=== PATIENT | female | born 1970 | race American Indian/Alaskan Native ===

== ENCOUNTER 2016-04-19 01:08 | Emergency (ER) | payer OTHER ==
[2016-04-19 01:57] LABS: Basophils % (Auto) 0.7 % (0.0-1.8); Eosinophils % (Auto) 1.3 % (0.0-4.3); Hematocrit 35.8 % (30.3-42.9); Hemoglobin 11.3 gm/dl (10.1-14.3); Mean Corpuscular HGB Conc 32 % (30-34); Mean Corpuscular Volume 81 fl (79-97); Platelet Count 269 K/mm3 (140-440); Red Blood Count 4.41 M/mm3 (3.65-5.03); Red Cell Distribution Width 16.9 % (13.2-15.2); White Blood Count 7.3 K/mm3 (4.5-11.0)
[2016-04-19 02:04] LABS: BUN/Creatinine Ratio 12.85; Blood Urea Nitrogen 9 mg/dL (7-17); Carbon Dioxide 23 mmol/L (22-30); Chloride 99.2 mmol/L (98-107); Glucose 98 mg/dL (65-100); Potassium 3.6 mmol/L (3.6-5.0); Sodium 138 mmol/L (137-145)
[2016-04-19 02:11] LABS: Mean Corpuscular Hemoglobin 26 pg (28-32)
[2016-04-19 02:19] LABS: Anion Gap 19 mmol/L
[2016-04-19] MEDS ORDERED: ATIVAN PO ONE (03:13)
--- NOTE | 2016-04-19 03:19 | Emergency Department Report ---
ED General Adult HPI - General Chief complaint: Arrhythmia/Palpitations Stated complaint: VAG BURNING,PALPITATIONS Time Seen by Provider: 04/19/16 02:54 Source: patient Mode of arrival: Ambulatory Limitations: No Limitations - History of Present Illness Initial comments: Patient complains of some discomfort bilaterally in her legs. She describes it as feeling tingly and painful. She states the pain is not changed by position. She reports it is worse in the late evening hours and nighttime. Has been going on for about a week now. No specific trauma is reported no neck pain no back pain is reported. Patient has reported anxiety at times due to the discomfort and felt her heart racing. She denies any chest pain however. As any prior history of restless leg syndrome. She does report family stressors and her other baseline. No exacerbation. Onset/Timin -: Gradual, week(s) Location: lower extremity Radiation: non-radiation Quality: burning, aching Consistency: intermittent Improves with: none Worsens with: none Associated Symptoms: denies other symptoms - Related Data Previous Rx's Medication Instructions Recorded Last Taken Type Gabapentin [Neurontin] 300 mg PO Q8HR #90 capsule 04/19/16 Unknown Rx LORazepam [Ativan] 1 mg PO BID PRN #15 tablet 04/19/16 Unknown Rx Allergies Allergy/AdvReac Type Severity Reaction Status Date / Time codeine Allergy Vomiting Verified 04/19/16 01:17 Penicillins Allergy Vomiting Verified 04/19/16 01:17 ED Review of Systems ROS: Stated complaint: VAG BURNING,PALPITATIONS Other details as noted in HPI Constitutional: denies: chills, fever Eyes: denies: eye pain, eye discharge, vision change ENT: denies: ear pain, throat pain Respiratory: denies: cough, shortness of breath, wheezing Cardiovascular: palpitations. denies: chest pain Endocrine: no symptoms reported Gastrointestinal: denies: abdominal pain, nausea, diarrhea Genitourinary: denies: urgency, dysuria, discharge Musculoskeletal: other (leg pains). denies: back pain, joint swelling, arthralgia Skin: denies: rash, lesions Neurological: denies: headache, weakness, paresthesias Psychiatric: denies: anxiety, depression Hematological/Lymphatic: denies: easy bleeding, easy bruising ED Past Medical Hx - Past Medical History Previous Medical History?: No - Surgical History Past Surgical History?: Yes Hx Cholecystectomy: Yes - Medications Home Medications: Home Medications Medication Instructions Recorded Confirmed Last Taken Type Gabapentin [Neurontin] 300 mg PO Q8HR #90 capsule 04/19/16 Unknown Rx LORazepam [Ativan] 1 mg PO BID PRN #15 tablet 04/19/16 Unknown Rx ED Physical Exam - General Limitations: No Limitations General appearance: alert, in no apparent distress - Head Head exam: Present: atraumatic, normocephalic - Eye Eye exam: Present: normal appearance - ENT ENT exam: Present: mucous membranes moist - Neck Neck exam: Present: normal inspection - Respiratory Respiratory exam: Present: normal lung sounds bilaterally. Absent: respiratory distress - Cardiovascular Cardiovascular Exam: Present: regular rate, normal rhythm. Absent: systolic murmur, diastolic murmur, rubs, gallop - GI/Abdominal GI/Abdominal exam: Present: soft, normal bowel sounds - Extremities Exam Extremities exam: Present: normal inspection. Absent: pedal edema, joint swelling, calf tenderness - Back Exam Back exam: Present: normal inspection - Neurological Exam Neurological exam: Present: alert, oriented X3, normal gait, other (downward Babinski bilaterally normal proprioception. Normal sensation to light touch.) - Psychiatric Psychiatric exam: Present: normal affect, normal mood - Skin Skin exam: Present: warm, dry, intact, normal color. Absent: rash ED Course Vital Signs 04/19/16 04/19/16 01:13 03:16 Temperature 97.8 F 98.5 F Pulse Rate 90 72 Respiratory 20 18 Rate Blood Pressure 162/83 Blood Pressure 160/62 [Left] O2 Sat by Pulse 100 100 Oximetry - Reevaluation(s) Reevaluation #1: 04/19/16 06:38 Labs are noted as his ECG they are unremarkable. It is unclear to me what the specific pathology is. I do question restless leg is a possibility. Clearly it is subjective and not objective in nature. Trial on gabapentin. I did consider Lyrica as an option as well. On second thought this probably was a better option Nonetheless at this point is left with her prescription for gabapentin I did give her a little Ativan here as well. It did seem to have a good effect. Neurologically the patient is intact she is ambulating well. She appears comfortable and well in general also. He shouldn't is of - [place] descent. This causes me to have a low suspicion for multiple sclerosis. No weakness associated with this. I do not suspect an ascending paralysis. 04/19/16 06:40 ED Medical Decision Making - Lab Data Result diagrams: 04/19/16 01:31 04/19/16 01:31 - EKG Data -: EKG Interpreted by Me EKG shows normal: sinus rhythm, axis, intervals, QRS complexes, ST-T waves Rate: normal - EKG Data Interpretation: normal EKG Critical care attestation.: If time is entered above; I have spent that time in minutes in the direct care of this critically ill patient, excluding procedure time. ED Disposition Clinical Impression: Paresthesia of bilateral legs Disposition: DISCHARGED TO HOME OR SELFCARE Is pt being admited?: No Does the pt Need Aspirin: No Condition: Stable Instructions: Paresthesia (ED), Restless Legs Syndrome (ED) Additional Instructions: Start the gabapentin 300 mg 3 times a day. And every day increase by 1 tablet every other day. Day 3- 2 tablets in the morning than 1 tablet in the afternoon and evening. Day 5- 2 tablets in the morning and the afternoon and one tablet in the evening Day 7- 2 tablets 3x a day. Follow with your doctor in a week to see you are progressing. Prescriptions: Gabapentin [Neurontin] 300 mg PO Q8HR #90 capsule LORazepam [Ativan] 1 mg PO BID PRN #15 tablet PRN Reason: Agitation Referrals: DURGA BLACKWOOD MD [Primary Care Provider] - 3-5 Days Time of Disposition: 03:20
[2016-04-19 04:05] VITALS: BP 160/62
== END 2016-04-19 03:50 | disposition home or self-care (01) ==
LOC: ED 01:08
DX: R20.2 Paresthesia of skin (principal); M79.605 Pain in left leg; M79.604 Pain in right leg; Z90.49 Acquired absence of other specified parts of digestive tract; Z79.899 Other long term (current) drug therapy; Z88.0 Allergy status to penicillin; Z88.6 Allergy status to analgesic agent
CPT/HCPCS: 36415; 80048; 84484; 85025; 93005; 93010

== ENCOUNTER 2016-07-04 08:01 | Emergency (ER) | payer OTHER ==
[2016-07-04 08:11] VITALS: BP 133/90
--- NOTE | 2016-07-04 09:09 | Emergency Department Report ---
ED ENT HPI - General Chief complaint: Earache Stated complaint: BRIANNA EAR PAIN Time Seen by Provider: 07/04/16 08:40 Source: patient Mode of arrival: Ambulatory Limitations: No Limitations - History of Present Illness Initial comments: patient comes in with ear pain and states that she saw ENT 2 days ago and was started on Biaxin 250 mg bid. Came in today because she is not any better. complaint: ear pain -: week(s) (1) Location: R ear, L ear Severity: moderate Quality: sharp Consistency: constant Improves with: none Worsens with: swallowing Associated Symptoms: denies: fever, cough, gum swelling, toothache, sore throat , tinnitus, hearing loss, discharge from ear, rhinorrhea - Related Data Previous Rx's Medication Instructions Recorded Last Taken Type Gabapentin [Neurontin] 300 mg PO Q8HR #90 capsule 04/19/16 Unknown Rx LORazepam [Ativan] 1 mg PO BID PRN #15 tablet 04/19/16 Unknown Rx Cefdinir 300 mg PO BID #20 capsule 07/04/16 Unknown Rx Promethazine [Phenergan TAB] 25 mg PO Q8HR PRN #20 tab 07/04/16 Unknown Rx traMADol [Ultram] 50 mg PO Q6HR PRN #20 tablet 07/04/16 Unknown Rx Allergies Allergy/AdvReac Type Severity Reaction Status Date / Time codeine Allergy Vomiting Verified 04/19/16 01:17 Penicillins Allergy Vomiting Verified 04/19/16 01:17 ED Dental HPI - General Chief complaint: Earache Stated complaint: BRIANNA EAR PAIN Time Seen by Provider: 07/04/16 08:40 Source: patient Mode of arrival: Ambulatory Limitations: No Limitations - Related Data Previous Rx's Medication Instructions Recorded Last Taken Type Gabapentin [Neurontin] 300 mg PO Q8HR #90 capsule 04/19/16 Unknown Rx LORazepam [Ativan] 1 mg PO BID PRN #15 tablet 04/19/16 Unknown Rx Cefdinir 300 mg PO BID #20 capsule 07/04/16 Unknown Rx Promethazine [Phenergan TAB] 25 mg PO Q8HR PRN #20 tab 07/04/16 Unknown Rx traMADol [Ultram] 50 mg PO Q6HR PRN #20 tablet 07/04/16 Unknown Rx Allergies Allergy/AdvReac Type Severity Reaction Status Date / Time codeine Allergy Vomiting Verified 04/19/16 01:17 Penicillins Allergy Vomiting Verified 04/19/16 01:17 ED Review of Systems ROS: Stated complaint: BRIANNA EAR PAIN Other details as noted in HPI Constitutional: denies: chills, fever Eyes: denies: eye pain, eye discharge, vision change ENT: ear pain. denies: throat pain Respiratory: denies: cough, shortness of breath, wheezing Cardiovascular: denies: chest pain, palpitations Endocrine: no symptoms reported Gastrointestinal: denies: abdominal pain, nausea, diarrhea Genitourinary: denies: urgency, dysuria, discharge Musculoskeletal: denies: back pain, joint swelling, arthralgia Skin: denies: rash, lesions Neurological: denies: headache, weakness, paresthesias Psychiatric: denies: anxiety, depression Hematological/Lymphatic: denies: easy bleeding, easy bruising ED Past Medical Hx - Past Medical History Previous Medical History?: No - Surgical History Past Surgical History?: Yes Hx Cholecystectomy: Yes - Social History Smoking Status: Never Smoker Substance Use Type: None - Medications Home Medications: Home Medications Medication Instructions Recorded Confirmed Last Taken Type Gabapentin [Neurontin] 300 mg PO Q8HR #90 capsule 04/19/16 Unknown Rx LORazepam [Ativan] 1 mg PO BID PRN #15 tablet 04/19/16 Unknown Rx Cefdinir 300 mg PO BID #20 capsule 07/04/16 Unknown Rx Promethazine [Phenergan TAB] 25 mg PO Q8HR PRN #20 tab 07/04/16 Unknown Rx traMADol [Ultram] 50 mg PO Q6HR PRN #20 tablet 07/04/16 Unknown Rx ED Physical Exam - General Limitations: No Limitations General appearance: alert, in no apparent distress - Head Head exam: Present: atraumatic, normocephalic - Eye Eye exam: Present: normal appearance - ENT ENT exam: Present: mucous membranes moist - Expanded ENT Exam Expanded TM/Canal exam: Bulging: Right TM, Left TM, Mastoid Tenderness: Right TM, Left TM Mouth exam: Present: normal external inspection Teeth exam: Present: normal inspection Throat exam: Positive: normal inspection - Neck Neck exam: Present: normal inspection - Respiratory Respiratory exam: Present: normal lung sounds bilaterally. Absent: respiratory distress - Cardiovascular Cardiovascular Exam: Present: regular rate, normal rhythm. Absent: systolic murmur, diastolic murmur, rubs, gallop - GI/Abdominal GI/Abdominal exam: Present: soft, normal bowel sounds - Extremities Exam Extremities exam: Present: normal inspection - Back Exam Back exam: Present: normal inspection - Neurological Exam Neurological exam: Present: alert, oriented X3 - Psychiatric Psychiatric exam: Present: normal affect, normal mood - Skin Skin exam: Present: warm, dry, intact, normal color. Absent: rash ED Course Vital Signs 07/04/16 08:06 Temperature 97.8 F Pulse Rate 99 H Respiratory 18 Rate Blood Pressure 133/90 O2 Sat by Pulse 100 Oximetry ED Medical Decision Making - Medical Decision Making patient is non-toxic and hemodynamically stable. She is on a low dose of Biaxin and having metalic taste in mouth. I will change Abx and she is to follow- up with ENT. Critical care attestation.: If time is entered above; I have spent that time in minutes in the direct care of this critically ill patient, excluding procedure time. ED Disposition Clinical Impression: Ear pain, Otitis media Disposition: DISCHARGED TO HOME OR SELFCARE Is pt being admited?: No Does the pt Need Aspirin: No Condition: Good Instructions: Otitis Media (ED) Prescriptions: Cefdinir 300 mg PO BID #20 capsule Promethazine [Phenergan TAB] 25 mg PO Q8HR PRN #20 tab PRN Reason: Nausea traMADol [Ultram] 50 mg PO Q6HR PRN #20 tablet PRN Reason: Pain Referrals: PRIMARY CARE, [Primary Care Provider] - 3-5 Days Time of Disposition: 09:14
== END 2016-07-04 09:28 | disposition home or self-care (01) ==
LOC: ED 08:01
DX: H66.93 Otitis media, unspecified, bilateral (principal); Z88.0 Allergy status to penicillin; Z88.8 Allergy status to other drugs, medicaments and biological substances
CPT/HCPCS: 99282